=== PATIENT | female | born 1980 | race Hispanic/Latino ===

== ENCOUNTER 2017-09-02 20:25 | Emergency (ER) | payer SELFPAY ==
[2017-09-02] MEDS ORDERED: ACETAMINOPHEN 325 MG TAB ONE (20:34)
[2017-09-02 20:54] LABS: APPEARANCE,URINE Clear (CLEAR); BILIRUBIN,URINE Negative (NEGATIVE); COLOR,URINE Yellow (YELLOW); GLUCOSE, URINE (UA) Negative (NEGATIVE); KETONES,URINE Negative (NEGATIVE); LEUKOCYTE ESTERASE ,URINE Negative (NEGATIVE); NITRATE,URINE Negative (NEGATIVE); OCCULT BLOOD,URINE Moderate (NEGATIVE); PROTEIN,URINE Negative (NEGATIVE); UROBILINOGEN,URINE 0.2 mg/dL (0.2-1.0)
[2017-09-02 20:55] LABS: HCG,QUAL RESULT NEGATIVE (NEGATIVE)
[2017-09-02 21:04] LABS: BACTERIA,URINE None Seen /HPF (None Seen); RBC,URINE 0-1 /HPF (0-1); WBC,URINE None Seen /HPF (0-1)
[2017-09-02 21:19] LABS: RAPID GROUP A STREP NEGATIVE (NEGATIVE)
[2017-09-02] MEDS ORDERED: KETOROLAC TROMETHAMINE 60 MG/2 ML VIAL ONE (21:51)
[2017-09-02] MEDS ORDERED: DEXAMETHASONE SOD PHOSPHATE 10MG/ML 1ML VIAL ONE (21:51)
== END 2017-09-02 22:10 | disposition home or self-care (01) ==
LOC: EDH 20:25
DX: J10.1 Influenza due to other identified influenza virus with other respiratory manifestations (principal); I10 Essential (primary) hypertension; E07.9 Disorder of thyroid, unspecified; Z88.8 Allergy status to other drugs, medicaments and biological substances
CPT/HCPCS: 81001; 81025; 87804 ×2; 87880; 96372 ×2; 99284; J1100; J1885

== ENCOUNTER 2017-10-15 18:27 | Emergency (ER) | payer SELFPAY ==
[2017-10-15 19:20] LABS: BASOPHILS % (AUTO) 0.6 % (0.0-5.0); EOSINOPHILS % (AUTO) 1.1 % (0.0-8.0); HEMATOCRIT 27.6 % (36-48); LYMPHOCYTES % (AUTO) 27.2 % (21.0-51.0); MEAN CORPUSCULAR HGB CONC 31.4 g/dL (32.0-36.0); MEAN CORPUSCULAR VOLUME 63.6 fL (79-99); MONOCYTES % (AUTO) 5.2 % (3.0-13.0); NEUTROPHILS % (AUTO) 65.9 % (40.0-77.0); PLATELET COUNT (AUTO) 434 K/uL (130-400); RED BLOOD CELL COUNT(AUTO) 4.34 MIL/uL (4.00-5.50); RED CELL DISTRIBUTION WIDTH 20.6 % (11.0-15.5); WHITE BLOOD COUNT (AUTO) 10.6 K/uL (4.8-10.8)
[2017-10-15 19:36] LABS: CARBON DIOXIDE 26 mmol/L (21-32); CHLORIDE 106 mmol/L (101-111); CREATININE 0.7 mg/dL (0.5-1.5); GLOMERULAR FILTR. RATE CALC 100 mL/min (>60); GLUCOSE,RANDOM 93 mg/dL (70-105); POTASSIUM 3.9 mmol/L (3.5-5.1); SODIUM SERUM 140 mmol/L (136-145); UREA NITROGEN, BLOOD 11 mg/dL (7-18)
[2017-10-15 19:40] LABS: ALANINE AMINOTRANSFERASE 18 U/L (12-78); ALBUMIN 3.6 g/dL (3.5-5.0); ASPARTATE AMINOTRANSFERASE 15 U/L (10-37); BILIRUBIN,DIRECT < 0.1 mg/dL (0.0-0.3); BILIRUBIN,TOTAL 0.2 mg/dL (0.2-1.0); TOTAL PROTEIN, SERUM 7.7 g/dL (6.0-8.3)
[2017-10-15 19:50] LABS: CREATINE KINASE MB < 0.5 ng/mL (0.5-3.6); CREATINE KINASE, TOTAL 42 U/L (21-232)
[2017-10-15] MEDS ORDERED: IOPAMIDOL-370 100 ML VIAL IV ONE (21:22)
== END 2017-10-15 22:43 | disposition home or self-care (01) ==
LOC: EDH 18:27
DX: R07.89 Other chest pain (principal); R00.2 Palpitations; D64.9 Anemia, unspecified; I10 Essential (primary) hypertension; E07.9 Disorder of thyroid, unspecified; Z91.048 Other nonmedicinal substance allergy status
CPT/HCPCS: 36415; 71046; 71275; 80048; 80076; 81025; 82550; 82553; 84484; 85025; 85378; 93005; 99285; Q9967

== ENCOUNTER 2017-12-11 17:39 | Emergency (ER) | payer SELFPAY ==
[2017-12-11 18:14] LABS: BASOPHILS % (AUTO) 0.2 % (0.0-5.0); EOSINOPHILS % (AUTO) 1.9 % (0.0-8.0); HEMATOCRIT 30.3 % (36-48); MEAN CORPUSCULAR HEMOGLOBIN 20.7 pg (27.0-33.0); MEAN CORPUSCULAR HGB CONC 32.6 g/dL (32.0-36.0); MEAN CORPUSCULAR VOLUME 63.6 fL (79-99); MONOCYTES % (AUTO) 7.4 % (3.0-13.0); NEUTROPHILS % (AUTO) 64.5 % (40.0-77.0); PLATELET COUNT (AUTO) 471 K/uL (130-400); RED BLOOD CELL COUNT(AUTO) 4.77 MIL/uL (4.00-5.50); RED CELL DISTRIBUTION WIDTH 20.4 % (11.0-15.5); WHITE BLOOD COUNT (AUTO) 9.5 K/uL (4.8-10.8)
[2017-12-11 18:17] LABS: APPEARANCE,URINE Clear (CLEAR); BILIRUBIN,URINE Negative (NEGATIVE); COLOR,URINE Yellow (YELLOW); GLUCOSE, URINE (UA) Negative (NEGATIVE); KETONES,URINE Negative (NEGATIVE); LEUKOCYTE ESTERASE ,URINE Negative (NEGATIVE); NITRATE,URINE Negative (NEGATIVE); OCCULT BLOOD,URINE Moderate (NEGATIVE); PROTEIN,URINE Negative (NEGATIVE); UROBILINOGEN,URINE 0.2 mg/dL (0.2-1.0)
[2017-12-11 18:19] LABS: HCG,QUAL RESULT NEGATIVE (NEGATIVE)
[2017-12-11 18:21] LABS: CREATININE 0.8 mg/dL (0.5-1.5); CRP QUANTITATIVE 36.7 mg/L (0.00-9.0); POTASSIUM 3.3 mmol/L (3.5-5.1)
[2017-12-11 18:34] LABS: WBC,URINE 0-1 /HPF (0-1)
[2017-12-11 18:35] LABS: BACTERIA,URINE Few /HPF (None Seen); SQUAMOUS EPITHELIAL CELL,UR 0-2 /HPF (0-2)
[2017-12-11 19:28] LABS: ERYTHROCYTE SEDIMENTATION RATE 28 MM/HR (0-20)
[2017-12-11] MEDS ORDERED: METHYLPREDNISOLONE SOD SUCC 125MG/2ML VIAL ONE (19:43)
== END 2017-12-11 19:54 | disposition home or self-care (01) ==
LOC: EDH 17:39
DX: M25.522 Pain in left elbow (principal); M25.521 Pain in right elbow; M25.562 Pain in left knee; M25.561 Pain in right knee; E07.9 Disorder of thyroid, unspecified; I10 Essential (primary) hypertension; Z88.8 Allergy status to other drugs, medicaments and biological substances
CPT/HCPCS: 36415; 80048; 81001; 81025; 84443; 85025; 85651; 86140; 96372; 99284; J2930

== ENCOUNTER 2022-04-21 05:30 | Observation (INO) | payer OTHER ==
[2022-04-20 15:53] VITALS: BP 131/91
[2022-04-20 16:06] LABS: BASOPHILS % (AUTO) 0.3 % (0.0-5.0); EOSINOPHILS % (AUTO) 0.7 % (0.0-8.0); HEMATOCRIT 41.3 % (36-48); LYMPHOCYTES % (AUTO) 30.1 % (21.0-51.0); MEAN CORPUSCULAR HEMOGLOBIN 28.5 pg (27.0-33.0); MEAN CORPUSCULAR HGB CONC 33.2 g/dL (32.0-36.0); MEAN CORPUSCULAR VOLUME 85.9 fL (79-99); MONOCYTES % (AUTO) 4.6 % (3.0-13.0); NEUTROPHILS % (AUTO) 64.1 % (40.0-77.0); PLATELET COUNT (AUTO) 346 K/uL (130-400); RED BLOOD CELL COUNT(AUTO) 4.81 MIL/uL (4.00-5.50); RED CELL DISTRIBUTION WIDTH 14.4 % (11.0-15.5); WHITE BLOOD COUNT (AUTO) 9.7 K/uL (4.8-10.8)
[2022-04-20 16:10] LABS: APPEARANCE,URINE CLEAR (CLEAR); BILIRUBIN,URINE NEGATIVE (NEGATIVE); COLOR,URINE COLORLESS (YELLOW); GLUCOSE, URINE (UA) NEGATIVE (NEGATIVE); KETONES,URINE NEGATIVE (NEGATIVE); LEUKOCYTE ESTERASE ,URINE NEGATIVE Leu/uL (NEGATIVE); NITRATE,URINE NEGATIVE (NEGATIVE); OCCULT BLOOD,URINE LARGE (NEGATIVE); PROTEIN,URINE NEGATIVE (NEGATIVE); UROBILINOGEN,URINE 0.2 mg/dL (0.2-1.0)
[2022-04-20 16:20] LABS: BACTERIA,URINE FEW /HPF (None Seen); MUCUS,URINE RARE LPF (None Seen); SQUAMOUS EPITHELIAL CELL,UR RARE /HPF (0-2)
[~2022-04-21] VITALS: Ht 154.9 cm; Wt 83.1 kg
[2022-04-21] VITALS (26 sets, daily range): BP systolic 98–142; BP diastolic 55–88
[~2022-04-21 05:30] MED LIST: HYDR25TA PO; LEVO137T2 PO; LOSARTAN PO; MEDR150D9 IM
[2022-04-21] MEDS ORDERED: CEFAZOLIN SODIUM 1 GM VIAL IVP SCH (06:00)
[2022-04-21] MEDS ORDERED: LACTATED RINGERS 1000ML 1,000 ML IV ONE (07:46)
[2022-04-21] MEDS ORDERED: VALS320T16 PO (07:58)
[2022-04-21 08:28] LABS: CREATININE 0.9 mg/dL (0.5-1.5)
[2022-04-21] MEDS ORDERED: MAGNESIUM SULFATE 1 GM/2 ML VIAL ONE (10:09)
[2022-04-21] MEDS ORDERED: MORPHINE PF 100MG/10ML AMP IV ONE (10:09)
[2022-04-21] MEDS ORDERED: KETAMINE 50MG/ML SYRINGE 50 MG/ML DISP.SYRIN IV ONE (10:09)
[2022-04-21] MEDS ORDERED: FENTANYL CITRATE PF 50 MCG/1 ML 5ML AMP IV ONE (11:59)
[2022-04-21] MEDS ORDERED: MIDAZOLAM HCL 1 MG/ML 2ML VIAL ONE (11:59)
[2022-04-21] MEDS ORDERED: ROCURONIUM 10MG/1ML SYR 10 MG/ML ML ONE ×2 (12:11→13:15)
[2022-04-21] MEDS ORDERED: PROPOFOL 10 MG/ML 20ML VIAL IV ONE (12:12)
[2022-04-21] MEDS ORDERED: CEFAZOLIN SODIUM 2 GM VIAL IVP ONE (12:30)
[2022-04-21] MEDS ORDERED: ONDANSETRON 4MG INJ ONE (13:21)
[2022-04-21] MEDS ORDERED: DEXAMETHASONE SOD PHOSPHATE 4 MG/ML 1ML VIAL ONE (13:21)
[2022-04-21] MEDS ORDERED: EPHEDRINE SULFATE 50 MG/ML AMPULE ONE (13:26)
[2022-04-21] MEDS ORDERED: NEOSTIGMINE 5MG/5ML SYR IV ONE (13:59)
[2022-04-21] MEDS ORDERED: GLYCOPYRROLATE 1 MG/5 ML SYRINGE ONE (13:59)
[2022-04-21] MEDS ORDERED: FENTANYL CITRATE PF 50 MCG/1 ML 2ML VIAL ONE (14:22)
[2022-04-21] MEDS ORDERED: MEPERIDINE-PF 25 MG/ML SYG ONE (14:34)
[2022-04-21] MEDS ORDERED: ONDANSETRON 4MG INJ IVP PRN (16:00)
[2022-04-21] MEDS ORDERED: ACETAMINOPHEN WITH CODEINE 1 TAB TAB PO PRN (16:00)
[2022-04-21] MEDS ORDERED: BISACODYL 10 MG SUPP.RECT RC PRN (16:00)
[2022-04-21] MEDS ORDERED: PROMETHAZINE HCL 25 MG/ML 1ML AMPULE IM PRN ×2 (16:00)
[2022-04-21] MEDS ORDERED: MEPERIDINE-PF 75 MG/ML SYG IM PRN (16:00)
[2022-04-21] MEDS ORDERED: PROMETHAZINE HCL 25 MG/ML 1ML AMPULE ONE (16:15)
[2022-04-21] MEDS ORDERED: MEPERIDINE-PF 75 MG/ML SYG ONE (16:16)
[2022-04-21] MEDS: DEXTROSE 5 %-0.45 % NACL 1,000 ML IV PRN (16:21)
[2022-04-21] MEDS: DOCUSATE SODIUM 100 MG CAP PO PRN (20:58)
[2022-04-21] MEDS: SIMETHICONE 80 MG TAB.CHEW PO PRN (20:58)
[2022-04-22] MEDS: DEXTROSE 5 %-0.45 % NACL 1,000 ML IV PRN (00:16)
[2022-04-22 03:26] VITALS: BP 118/71
[2022-04-22 05:35] LABS: MEAN CORPUSCULAR HGB CONC 33.9 g/dL (32.0-36.0); MEAN CORPUSCULAR VOLUME 85.6 fL (79-99); RED BLOOD CELL COUNT(AUTO) 3.62 MIL/uL (4.00-5.50); RED CELL DISTRIBUTION WIDTH 14.3 % (11.0-15.5)
[2022-04-22] MEDS ORDERED: ACETAMINOPHEN WITH CODEINE 1 TAB TAB PO PRN (06:00)
[2022-04-22] MEDS ORDERED: HYDROCODONE/ACETAMINOPHEN 5/325 MG TAB PO PRN (06:00)
[2022-04-22 07:31] VITALS: BP 135/80
[2022-04-22] MEDS: DOCUSATE SODIUM 100 MG CAP PO PRN (09:08)
[2022-04-22] MEDS: SIMETHICONE 80 MG TAB.CHEW PO PRN (09:08)
[2022-04-22 11:20] VITALS: BP 115/71
== END 2022-04-22 12:05 | disposition home or self-care (01) ==
LOC: DAH 05:30 → OBSVTOIN 05:31 → DAH 05:31 → DAHIP 05:31 → INTOOBSV 05:31 → WSH 15:25
PROVIDERS: ADMIT Obstetrics & Gynecology; ATTEND Obstetrics & Gynecology
DX: N92.1 Excessive and frequent menstruation with irregular cycle (principal); Z20.822 Contact with and (suspected) exposure to COVID-19; R10.2 Pelvic and perineal pain; N83.9 Noninflammatory disorder of ovary, fallopian tube and broad ligament, unspecified; D25.9 Leiomyoma of uterus, unspecified; Z79.899 Other long term (current) drug therapy; Z98.890 Other specified postprocedural states
CPT/HCPCS: 84703; 85025; 86850; 86900; 86901; 87426; 81001; 36415 ×3; 58552; 96372; 80048; 85027; A6260; A4663; J7030; J7120 ×2; A4344; A4215 ×2; J3010 ×2; J0690 ×2; J3490 ×3; J2710; J2550; J3475; J2250; J2704; J2274; J2405; J1100; J2175 ×2; C1769 ×2; A4649 ×3; A4930; A4223; A4222; A4221; A4600; A4510; G0378 ×5